=== PATIENT | female | born 1955 | race Caucasian/White ===

== ENCOUNTER 2019-04-27 09:00 | Outpatient (CLI) | payer MEDICARE ==
--- NOTE | 2019-04-27 16:14 | DEXA Report ---
Reason: OSTEOPENIA Procedure Date: 04/27/2019 Accession Number: [id number] / [id number] Procedure: DEX - Dexa Spine and/or Hip CPT Code: Final Report FULL RESULT: EXAM: Dexa Spine and/or Hip DATE: 04/27/2019 9:23 AM CLINICAL HISTORY: OSTEOPENIA TECHNIQUE: Dual energy x-ray absorptiometry (DXA) was performed on a [employer] System. Regions measured are the AP Spine, femoral neck, and if needed forearm. COMPARISON: None. In accordance with the International Society for Clinical Densitometry (ISCD) guidelines, data from previous exams may be reanalyzed using current recommendations and techniques. This is done to allow a more accurate basis for comparison with the current study. FINDINGS: The data for the lumbar spine is as follows: BMD (g/cm/cm) T-SCORE Z-SCORE REGION L1 1.013 -1.0 0.7 L2 1.037 -1.4 0.3 L3 1.117 -0.7 0.9 L4 1.128 -0.6 1.0 TOTAL 1.075 -0.9 0.7 NOTE: All evaluable vertebrae are used for classification The data for the hip is as follows: BMD (g/cm/cm) T-SCORE Z-SCORE REGION Neck 0.803 -1.7 -0.2 TOTAL 0.874 -1.1 0.2 NOTE: The femoral neck or total proximal femur, whichever is lowest, is used for classification. IMPRESSION: THE WHO CLASSIFICATION BASED ON THE INTERNATIONAL REFERENCE STANDARD IS OSTEOPENIA, REFERENCE LEFT FEMORAL NECK. THE FRACTURE RISK IS INCREASED. RECOMMENDATION: Patients with diagnosis of osteoporosis or osteopenia should have regular bone mineral density assessment. For those eligible for Medicare, routine testing is allowed once every 2 years. Testing frequency can be increased for patients who have rapidly progressing disease or for those who are receiving medical therapy to restore bone mass. COMMENT: World Health Organization (WHO) definitions for osteoporosis and osteopenia: NORMAL BMD: T-score at -1.0 or higher, fracture risk is low OSTEOPENIA BMD: T-score between -1.0 and -2.5, fracture risk is increased. OSTEOPOROSIS BMD: T-score at -2.5 or lower, fracture risk is high. National Osteoporosis Foundation recommends: 1. Obtain adequate dietary calcium (at least 1200 mg per day) and vitamin D (400-800 international units per day). 2. Participate, as appropriate, in regular weightbearing and muscle-strengthening exercise. 3. Avoid tobacco use and reduce alcohol and caffeine intake. 4. For more detailed information see the website at www.NOF.org.
== END 2019-04-27 09:01 | disposition home or self-care (01) ==
LOC: DI 09:00
PROVIDERS: ATTEND Registered Nurse
DX: M85.88 Other specified disorders of bone density and structure, other site (principal)
CPT/HCPCS: 77080

== ENCOUNTER 2020-07-08 16:12 | Emergency (ER) | payer MEDICARE ==
[2020-07-08 16:36] VITALS: BP 162/85
[2020-07-08 17:16] LABS: BILIRUBIN,URINE NEGATIVE (NEGATIVE); GLUCOSE, URINE (UA) NEGATIVE (NEGATIVE); KETONES,URINE (UA) NEGATIVE (NEGATIVE); LEUKOCYTE ESTERASE, URINE LARGE (NEGATIVE); NITRITE,URINE NEGATIVE (NEGATIVE); OCCULT BLOOD,URINE SMALL (NEGATIVE); PROTEIN,URINE NEGATIVE (NEGATIVE); UROBILINOGEN,URINE 0.2 (NORMAL) E.U./dL (NORMAL)
[2020-07-08 17:17] LABS: CLARITY,URINE HAZY (CLEAR)
--- NOTE | 2020-07-08 17:30 | ED Physician Documentation ---
History of Present Illness - Stated complaint Stated Complaint: UTI SYMPTOMS - Chief complaint Chief Complaint: UTI - Additonal information Additional information: 65-year-old female presents the emergency department with 3 days of dysuria ur gency frequency. Now reports foul smell to her urine. She reports that due to sciatica she is having a difficult time fully emptying her bladder at night and now feels like she has a UTI. She is hesitant to get out of bed due to the sciatica but does not have incontinence. She is scheduled to see her primary care provider in 2 days. She has no fevers or vomiting. She has a normal gait. Review of Systems Constitutional: reports: Reviewed and negative Ears: reports: Reviewed and negative Nose: reports: Reviewed and negative Throat: reports: Reviewed and negative Cardiac: reports: Reviewed and negative Respiratory: reports: Reviewed and negative GI: reports: Reviewed and negative : reports: Dysuria, Frequency, Hesitancy. 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 : None HEENT: None Psych: None Musculoskeletal: None Derm: None - Past Surgical History Past Surgical History: No - Present Medications Home Medications: Ambulatory Orders Medication Instructions Recorded Confirmed Cephalexin [Keflex] 500 mg PO BID #14 capsule 07/08/20 - Allergies Allergies/Adverse Reactions: Allergies Allergy/AdvReac Type Severity Reaction Status Date / Time Sulfa (Sulfonamide AdvReac Headache Verified 07/08/20 16:33 Antibiotics) - Social History Does the pt smoke?: No Smoking Status: Never smoker Does the pt drink ETOH?: No Does the pt have substance abuse?: No - Immunizations Immunizations are current?: Yes PD ED PE NORMAL - General General: Alert and oriented X 3, No acute distress - Neck Neck: Supple, no meningeal sign - Cardiac Cardiac: RRR, No murmur - Respiratory Respiratory: Clear bilaterally - Abdomen Abdomen: Normal bowel sounds, Soft, Non distended. No: Non tender (Mild suprapubic tenderness without guarding or rebound. No flank or CVA tenderness elicited) - Back Back: No CVA TTP, No spinal TTP Results - Vitals Vitals: Vital Signs - 24 hr 07/08/20 16:33 Temperature 36.7 C Heart Rate 80 Respiratory 16 Rate Blood Pressure 162/85 H O2 Saturation 98 Oxygen O2 Source Room air - Labs Labs: Laboratory Tests 07/08/20 17:10 Urine Color LIGHT YELLOW Urine Clarity HAZY Urine pH 6.0 Ur Specific [place] <=1.005 Urine Protein NEGATIVE Urine Glucose (UA) NEGATIVE Urine Ketones NEGATIVE Urine Occult Blood SMALL H Urine Nitrite NEGATIVE Urine Bilirubin NEGATIVE Urine Urobilinogen 0.2 (NORMAL) Ur Leukocyte Esterase LARGE H Urine RBC 0-5 Urine WBC >25 H Urine WBC Clumps PRESENT Ur Squamous Epith Cells RARE Squamous Urine Bacteria Rare Ur Microscopic Review INDICATED Urine Culture Comments INDICATED PD MEDICAL DECISION MAKING - ED course Complexity details: reviewed results, re-evaluated patient, considered differential, d/w patient ED course: 65-year-old female presents the emergency department with 3 days of dysuria urgency and frequency. UA is consistent with infection. She has no fevers flank pain vomiting. My suspicion for acute pyelonephritis is low. Patient was given first dose of cephalexin here in the emergency department will be discharged with a 1 week course. Emergent return precautions discussed Departure - Departure Disposition: Home, Self Care Clinical Impression: Acute cystitis Qualifiers: Hematuria presence: without hematuria Qualified Code(s): N30.00 - Acute cystitis without hematuria Instructions: ED UTI Cystitis Female Follow-Up: LISANDRA KIM MD [Primary Care Provider] - Prescriptions: Cephalexin [Keflex] 500 mg PO BID #14 capsule Comments: Lacey you definitely have a urinary tract infection. Your first dose of antibiotics was given here in the emergency department. Please fill the prescription tomorrow and begin taking twice daily for the next week. If you find that your symptoms are not improving despite the antibiotics, you develop flank pain, high fevers, or begin to vomit uncontrollably please return to the ER for a second look
[2020-07-08 17:36] LABS: BACTERIA,URINE Rare /HPF (None Seen); RBC,URINE 0-5 /HPF (0-5); SQUAMOUS EPITHELIAL CELL,UR RARE Squamous (<= Few); WBC CLUMPS,URINE PRESENT
[2020-07-08] MEDS ORDERED: cephALEXin 250 MG CAPSULE PO STA (17:50)
--- OUTSIDE RECORDS SUMMARY | 2020-07-09 04:53 | EXTERNAL MEDICAL SUMMARY RPT | Continuity of Care Document ---
:1955 Demographics Phone Unavailable Preferred Language Azeri Marital Status Unknown Restorationism Affiliation Unknown Race Unknown Ethnic Group Unknown Author Organization [facility] Address [address] [place] [address] Phone Care Team Providers Name Role Phone GRANGER Unavailable Unavailable Allergies date description facility LURASIDONE [facility] GABAPENTIN [facility] LEVOTHYROXINE [facility] ADHESIVE \T\ TAPE [facility] CODEINE [facility] HYDROCHLOROTHIAZIDE W-TRIAMTERENE [facility] NORTRIPTYLINE HCL [facility] PAROXETINE HCL [facility] SERTRALINE HCL [facility] PENICILLINS [facility] SULFA [facility]OTICS [facility] OPIOIDS - MORPHINE ANALOGUES [facility] IODIDES [facility] SHELLFISH [facility] CODEINE [facility] BUPRENORPHINE HCL [facility] HORNET VENOM [facility]DOMETHACIN [facility] CEPHALEXIN [facility] CLINDAMYCIN [facility] C[facility]FLOXACIN [facility] AZITHROMYCIN [facility] FLECAINIDE [facility] LEVOFLOXACIN [facility] BEE VENOM PROTEIN (HONEY BEE) [facility] ERYTHROMYCIN [facility] Sulfa (Sulfonamide Antibiotics) [facility] Results test status date ordered by attending specimen hanane e null F 2020-07-08 ALECIA Tatum 07-08 17:16:00 17:10:00 null F 2020-07-08 ALECIA Tatum 07-08 17:16:00 17:10:00 null F 2020-07-08 ALECIA Tatum 07-08 17:16:00 17:10:00 null F 2020-07-08 [email or web address] Olivia Tatum 07-08 17:16:00 17:10:00 null F 2020-07-08 [email or web address] Olivia Tatum 07-08 17:16:00 17:10:00 null F 2020-07-08 [email or web address] Olivia Tatum 07-08 17:16:00 17:10:00 null F 2020-07-08 [email or web address] Olivia Tatum 07-08 17:16:00 17:10:00 null F 2020-07-08 [email or web address] Olivia Tatum 07-08 17:16:00 17:10:00 null F 2020-07-08 [email or web address] Olivia Tatum 07-08 17:16:00 17:10:00 null F 2020-07-08 [email or web address] Olivia Tatum 07-08 17:16:00 17:10:00 null F 2020-07-08 [email or web address] Olivia Tatum 07-08 17:16:00 17:10:00 null F 2020-07-08 [email or web address] Olivia Tatum 07-08 17:16:00 17:10:00 null F 2020-07-08 [email or web address] Olivia Tatum 07-08 17:16:00 17:10:00 null F 2020-07-08 [email or web address] Olivia Tatum 07-08 17:16:00 17:10:00 facility observation status value reference units lab abnor mal line range code notes [facility] F NEGATIVE NEGATIVE [facility] F HAZY CLEAR [facility] F LIGHT unknown URINE [facility] YELLOW C LEAN CATCH [facility] F INDICATED unknown [facility] Center [facility] F NEGATIVE NEGATIVE mg/dL [facility] F NEGATIVE NEGATIVE mg/dL [facility] F LARGE NEGATIVE A [facility] F INDICATED unknown Medical Center [facility] F NEGATIVE NEGATIVE [facility] F SMALL NEGATIVE A [facility] F 6.0 5.0-7.5 PH [facility] F NEGATIVE NEGATIVE mg/dL [facility] F <=1.005 1.002-1.03 [facility] 0 [facility] F 0.2 NORMAL [facility] (NORMAL) L test status date ordered by attending specimen hanane e null F 2020-07-08 [email or web address] Tatum 07-08 17:16:00 17:10:00 null F 2020-07-08 [email or web address] Tatum 07-08 17:16:00 17:10:00 null F 2020-07-08 [email or web address] Tatum 07-08 17:16:00 17:10:00 null F 2020-07-08 [email or web address] Tatum 07-08 17:16:00 17:10:00 null F 2020-07-08 [email or web address] Tatum 07-08 17:16:00 17:10:00 facility observation status value reference units lab abnor mal line range code notes [facility] F Rare None Seen /HPF [facility] F 0-5 0-5 /HPF [facility] F RARE <= [facility] Squamous [facility] F >25 0-5 /HPF A URINE [facility] C LEAN CATCH [facility] F PRESENT unknown Medical Center Social History date description facility [id number]
== END 2020-07-08 18:01 | disposition home or self-care (01) ==
LOC: ED 16:12
DX: N30.00 Acute cystitis without hematuria (principal)
CPT/HCPCS: 81001; 87086; 99283; 99284; A9270; 81003

== ENCOUNTER 2022-06-14 06:56 | Emergency (ER) | payer MEDICARE ==
--- NOTE | 2022-06-14 09:04 | ED Physician Documentation ---
History of Present Illness - Stated complaint Stated Complaint: FEMALE GI - Chief complaint Chief Complaint: General - History obtained from History obtained from: Patient - Additonal information Additional information: The patient comes to the emergency department with chief complaint of intermittent pulsations in her Left inguinal area. She states that she has not had any injury to the area. There is been no swelling or mass, either there or lower down in her left lower extremity. The patient denies any chest pain or shortness of breath. She has not had any recent procedures in the area. No history of hernia. No history of aneurysms. The patient states that this has been going on on and off for months, but more in the form of a feeling of fullness in her left inguinal area or that perhaps her underwear are too tight. She states that overnight was the first time she felt a pulsating sensation. She states it feels a lot better now, but that they were advised by the nurse hotline to come to the ED for further evaluation. Review of Systems Ten Systems: 10 systems reviewed and negative Constitutional: reports: Reviewed and negative Eyes: reports: Reviewed and negative Ears: reports: Reviewed and negative Nose: reports: Reviewed and negative Throat: reports: Reviewed and negative Cardiac: reports: Reviewed and negative Respiratory: reports: Reviewed and negative GI: reports: Reviewed and negative : reports: Reviewed and negative Skin: reports: Reviewed and negative Musculoskeletal: reports: Reviewed and negative Neurologic: reports: Reviewed and negative Psychiatric: reports: Reviewed and negative Endocrine: reports: Reviewed and negative Immunocompromised: reports: Reviewed and negative PD PAST MEDICAL HISTORY - Past Medical History Past Medical History: Yes Cardiovascular: None Respiratory: None Neuro: None Endocrine/Autoimmune: None GI: None 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 : None HEENT: None Psych: None Musculoskeletal: None Derm: None - Past Surgical History Past Surgical History: No - Present Medications Home Medications: Ambulatory Orders Medication Instructions Recorded Confirmed cephALEXin [Keflex] 500 mg PO BID #14 capsule 07/08/20 - Allergies Allergies/Adverse Reactions: Allergies Allergy/AdvReac Type Severity Reaction Status Date / Time Sulfa (Sulfonamide AdvReac Headache Verified 06/14/22 07:16 Antibiotics) - Social History Does the pt smoke?: No Smoking Status: Never smoker Does the pt drink ETOH?: No Does the pt have substance abuse?: No - Immunizations Immunizations are current?: Yes PD ED PE NORMAL - Vitals Vital signs reviewed: Yes - General General: Alert and oriented X 3, No acute distress, Well developed/nourished - HEENT HEENT: Atraumatic, PERRL, EOMI, Moist mucous membranes - Neck Neck: Supple, no meningeal sign - Cardiac Cardiac: Strong equal pulses, Other (Intact left femoral pulse, which is narrow and without mass-effect.) - Respiratory Respiratory: No respiratory distress - Derm Derm: Normal color, Warm and dry, No rash - Extremities Extremities: No deformity, No tenderness to palpate, Normal ROM s pain, No edema, No calf tenderness / cord - Neuro Neuro: Alert and oriented X 3, No motor deficit, No sensory deficit, Other (Grossly intact) - Psych Psych: Normal mood, Normal affect Results - Vitals Vitals: Vital Signs - 24 hr 06/14/22 07:14 Temperature 35.9 C L Heart Rate 71 Respiratory 16 Rate Blood Pressure 164/85 H O2 Saturation 95 Oxygen O2 Source Room air PD Medical Decision Making - ED course Complexity details: considered differential, d/w patient ED course: I discussed with the patient and her that I do not find any evidence of an emergent condition associated with the sensation at this time. The patient has a narrow femoral pulse without any mass to indicate hematoma, Aneurysm, hernia, or other soft tissue growth. She does not have any symptoms or findings that are worrisome for a DVT. I am not sure why she has had this intermittent sensation over the previous months, and I am not entirely certain why she has the sensation of increased pulsations now. The patient does have history of hypertension and is on lisinopril each morning, and does need to take this. We have discussed that this may be contributing to the feeling. I have discussed with the patient that she should follow-up with her primary care physician for further concerns. If she develops increasing discomfort going down her leg or if she develops pain and swelling down lower, she will need to be evaluated for a blood clot. At this time however, there is no indication for emergent work- up, and the patient is stable for discharge home. Departure - Departure Disposition: 01 Home, Self Care Clinical Impression: Groin discomfort Qualifiers: Laterality: left Qualified Code(s): R10.32 - Left lower quadrant pain Condition: Stable Instructions: Anatomy Abdomen Groin Comments: Your examination today is normal. It is not clear what has been causing the sense of fullness or increased awareness of your left groin area over the recent months, and it is not entirely clear what caused the sensation of pulsating today. Your blood pressure was a bit elevated when you arrived at 164/85, and this may be partially responsible for your symptoms. Please follow-up with your doctor for further concerns. If you begin to notice increasing swelling and pain in your leg, then you should be reevaluated for possible blood clot.
[2022-06-14 09:20] VITALS: BP 156/100
== END 2022-06-14 09:20 | disposition home or self-care (01) ==
LOC: ED 06:56
DX: R10.32 Left lower quadrant pain (principal)
CPT/HCPCS: 99281; 99282